=== PATIENT | female | born 1990 | race Caucasian/White ===

== ENCOUNTER → 2016-12-25 | Outpatient (CLI) | payer BC | LOC: LAB 14:15 | PROVIDERS: ATTEND Obstetrics & Gynecology | DX: O26.859 Spotting complicating pregnancy, unspecified trimester (principal) | CPT/HCPCS: 36415; 84702; 84703 ==

== ENCOUNTER → 2017-01-01 | Outpatient (CLI) | payer BC | LOC: LAB 13:19 | PROVIDERS: ATTEND Obstetrics & Gynecology | DX: O26.859 Spotting complicating pregnancy, unspecified trimester (principal) | CPT/HCPCS: 36415; 84702 ==